=== PATIENT | female | born 1995 | race Two or more races ===

== ENCOUNTER 2016-10-29 13:23 | Emergency (ER) | payer OTHER ==
--- NOTE | 2016-10-29 13:49 | EDPHY ---
H & P Smoking Status: Current every day smoker Time Seen by Provider: 10/29/16 13:44 HPI/ROS: CHIEF COMPLAINT: Pelvic pain, vaginal spotting. HISTORY OF PRESENT ILLNESS: The patient is a 21-year-old female who presents with pelvic pain and vaginal spotting for the past 3 weeks. The pain is described as moderate cramping and has been intermittent. Associated with vaginal spotting. She is using two tampons per day. Has an IUD in place (2.5 yrs ). She denies dizziness, lightheadedness, fever, vaginal discharge, or other complaints. REVIEW OF SYSTEMS: A complete 10-point review of systems was performed and is negative except for those items mentioned in the HPI. (Sarah Dumont) Past Medical/Surgical History: Denies (Sarah Dumont) Social History: Smoker, social alcohol use. (Sarah Dumont) Physical Exam: General Appearance: Alert, pleasant Eyes: Pupils equal and round, no conjunctival pallor or injection ENT, Mouth: Mucous membranes moist Neck: Normal inspection Respiratory: Lungs are clear to auscultation Cardiovascular: Regular rate and rhythm Gastrointestinal: Abdomen is soft, diffuse pelvic tenderness Neurological: A&O, nonfocal, normal gait Skin: Warm and dry, no rash Extremities: Nontender, no pedal edema Psychiatric: Mood and affect normal (Sarah Dumont) Constitutional: Initial Vital Signs Temperature (C) 36.7 C 10/29/16 13:28 Heart Rate 105 H 10/29/16 13:28 Respiratory Rate 20 10/29/16 13:28 Blood Pressure 97/61 L 10/29/16 13:28 O2 Sat (%) 98 10/29/16 13:28 O2 Delivery Mode Room Air Allergies/Adverse Reactions: cat dander Allergy (Verified 10/29/16 13:28) Home Medications: Medication Instructions Recorded Adderall 10 MG (RX) 08/31/15 Medicinal Marijuana 08/31/15 Hydrocodone/APAP 5/325 [Duncan 1 - 2 tab PO Q4H PRN #10 tab 10/29/16 5/325] Medical Decision Making ED Course/Re-evaluation: 21-year-old female presents with multiple weeks of lower abdominal cramping and vaginal spotting. She has an IUD in place but has never had vaginal spotting. She has been using two tampons per day since the onset of her symptoms. The pelvic pain has been crampy in nature and intermittent. She has not been dizzy or lightheaded. She has no other complaints at this time. On exam she is diffusely tender in the pelvic region. We will check CBC and BHCG quantitative. Pelvic ultrasound ordered. An IV was established. Patient is not . 30mg IV Toradol administered for pain. 1500: Consulted with radiologist. The patient's ultrasound is negative for acute process; appendix not visualized. I discussed this with the patient and answered her questions. Abd soft, pain localized to RLQ, will obtain CT abd/ pelvis to r/o appy. 10/30/16 8pm: Dirty urine result: positive for Gonorrhea. Called pt and left a message on her phone to c/b to the ED. (Sarah Dumont) Differential Diagnosis: Differential diagnosis includes though it is not limited to ectopic , ovarian cyst, ovarian torsion, PID, UTI, appendicitis. (Sarah Dumont) Other Provider: I assumed care of this patient at 3:[address] scan is reported to me at 5:[address] Lopez as normal, no signs of appendicitis. I discussed the CT scan with the patient. She will be discharged home with instructions regarding pelvic pain. (Mary Ellen Payton) - Data Points Laboratory Results: Laboratory Results 10/29/16 14:55 10/29/16 14:55 10/29/16 14:16 C.trachomatis RNA (TMA) NEGATIVE (NEGATIVE) N.gonorrhoeae RNA (TMA) POSITIVE H (NEGATIVE) Medications Given: Discontinued Medications Sodium Chloride (Ns) 1,000 mls @ 0 mls/hr IV ONCE ONE PRN Reason: Wide Open Stop: 10/29/16 15:23 Last Admin: 10/29/16 15:36 Dose: 1,000 mls Ketorolac Tromethamine (Toradol) 30 mg IVP EDNOW ONE Stop: 10/29/16 14:26 Last Admin: 10/29/16 15:00 Dose: 30 mg Departure - Departure Disposition: Home, Routine, Self-Care Clinical Impression: Pelvic cramping Condition: Good Instructions: Pelvic Pain in Women (ED) Additional Instructions: Take 600mg Ibuprofen every 6-8 hours as needed for pain. Call Dr. Matthew, [facility], today to set up a follow up appointment. Return to the emergency department if you experience any serious worsening of condition. Referrals: Sayda Dimas MD [Primary Care Provider] - As per Instructions iD Matthew DO [Doctor of Osteopathy] - As per Instructions Stand Alone Forms: School Excuse Prescriptions: Hydrocodone/APAP 5/325 [Duncan 5/325] 1 - 2 tab PO Q4H PRN #10 tab PRN Reason: Pain, Moderate Report Scribed for: Sarah Dumont Report Scribed by: Eran Sandoval Date of Report: 10/29/16 Time of Report: 13:45
[2016-10-29] MEDS ORDERED: KETOROLAC 30 MG/1 ML SDV IVP ONE (14:25)
[2016-10-29 15:09] LABS: % IMMATURE GRANULYOCYTES 0.3 % (0.0-1.1); ABSOLUTE IMMATURE GRANULOCYTES 0.04 10^3/uL (0.00-0.10); ADD DIFF? NO; ADD MORPH? YES; ADD SCAN? NO; ATYPICAL LYMPHOCYTE FLAG 20 (0-99); FRAGMENT RBC FLAG 40 (0-99); HEMATOCRIT 41.4 % (38.0-47.0); LEFT SHIFT FLG 0 (0-99); LIPEMIA HEMOLYSIS FLAG 80 (0-99); MEAN CELL HEMOGLOBIN 20.6 pg (27.9-34.1); MEAN CELL HEMOGLOBIN CONCENTR. 31.4 g/dL (32.4-36.7); PLATELET CLUMPS FLAG 0 (0-99); PLATELET COUNT 280 10^3/uL (150-400); RED BLOOD CELL COUNT 6.31 10^6/uL (4.18-5.33); RED CELL DISTRIBUTION WIDTH 17.3 % (11.5-15.2)
[2016-10-29 15:10] LABS: MEAN CELL VOLUME 65.6 fL (81.5-99.8)
[2016-10-29] MEDS ORDERED: NS 1,000 ML IV ONE (15:22)
[2016-10-29 15:44] LABS: ANION GAP 11 mEq/L (8-16); CALCIUM 9.4 mg/dL (8.5-10.4); CARBON DIOXIDE 20 mEq/l (22-31); CHLORIDE 107 mEq/L (97-110); CREATININE 0.6 mg/dL (0.6-1.0); GLOMERULAR FILTRATION RATE > 60; GLUCOSE 78 mg/dL (70-100); POTASSIUM 3.8 mEq/L (3.5-5.2); SODIUM 138 mEq/L (134-144)
[2016-10-29] MEDS ORDERED: IOPAMIDOL (ISOVUE-300) 100 ML BTL IV ONE (15:53)
[2016-10-29 15:56] LABS: MICROCYTES 1+; PLATELET ESTIMATE ADEQUATE (ADEQ)
[2016-10-29 16:20] VITALS: BP 103/61; PULSE 98; RESP 16; TEMP 98.4; O2SAT 97
[2016-10-30 12:16] LABS: CHLAMYDIA AMPLIFICATION GENPRB NEGATIVE (NEGATIVE)
== END 2016-10-29 17:14 | disposition home or self-care (01) ==
DX: R10.2 Pelvic and perineal pain (principal); F17.200 Nicotine dependence, unspecified, uncomplicated
CPT/HCPCS: 96374; J1885; Q9967